=== PATIENT | female | born 1995 | race American Indian/Alaskan Native ===

== ENCOUNTER 2016-11-25 10:53 | Inpatient (IN) | payer MEDICAID ==
[2016-11-25] MEDS ORDERED: LACTATED RINGERS 1,000 ML ONE ×3 (11:47→14:10)
[2016-11-25] MEDS ORDERED: SUBLIMAZE ONE (11:48)
[2016-11-25] MEDS ORDERED: SUBLIMAZE IV ONE (11:50)
[2016-11-25] MEDS ORDERED: BRETHINE SUB-Q PRN (12:03)
[2016-11-25] MEDS ORDERED: BRETHINE IVP PRN (12:03)
[2016-11-25] MEDS ORDERED: ePHEDrine SULFATE IV PRN ×2 (12:03→13:22)
[2016-11-25] MEDS ORDERED: ZOFRAN IV PRN ×2 (12:03→17:00)
[2016-11-25] MEDS ORDERED: MINERAL OIL PO PRN (12:03)
[2016-11-25] MEDS ORDERED: SUBLIMAZE IV PRN (12:03)
[2016-11-25 12:21] LABS: Basophils % (Auto) 0.2 % (0.0-1.8); Eosinophils % (Auto) 0.4 % (0.0-4.3); Hematocrit 38.9 % (30.3-42.9); Hemoglobin 13.1 gm/dl (10.1-14.3); Mean Corpuscular HGB Conc 34 % (30-34); Mean Corpuscular Hemoglobin 29 pg (28-32); Mean Corpuscular Volume 87 fl (79-97); Platelet Count 186 K/mm3 (140-440); Red Blood Count 4.47 M/mm3 (3.65-5.03); Red Cell Distribution Width 14.7 % (13.2-15.2); White Blood Count 7.6 K/mm3 (4.5-11.0)
--- NOTE | 2016-11-25 12:29 | History and Physical Report ---
History of Present Illness Date of examination: 11/25/16 (Admission Exam) Date of admission: 11/25/16 11:17 Chief complaint: Contractions for 2 days now. Reports no LOF/ROM, VB and has normal FM> History of present illness: Pt evaluated in OBT for several hours 11/24/16 and was DC'd early this AM at 3 cm with no change in cx at that time. Past History Past Medical History: other (Note: per pt report, her record is not located at this time.) Past Surgical History: no surgical history Family/Genetic History: none Social history: single - Obstetrical History Expected Date of Delivery: 12/01/16 Actual Gestation: 39 Week(s) 1 Day(s) : 1 Para: 0 Number of Living Children: 0 Medications and Allergies Allergies Allergy/AdvReac Type Severity Reaction Status Date / Time ciprofloxacin [From Cipro] Allergy Intermediate Hives Unverified 11/24/16 22:16 ciprofloxacin HCl Allergy Intermediate Hives Unverified 11/24/16 22:16 [From Cipro] Home Medications Medication Instructions Recorded Confirmed Last Taken Type Pnv95/Ferrous Fumarate/FA 1 each PO DAILY 11/25/16 11/25/16 11/24/16 09:00 History [Prenavite Tablet] 1 Active Meds: Active Medications Ephedrine Sulfate (Ephedrine Sulfate) 10 mg IV Q2M PRN PRN Reason: Hypotension Stop: 11/25/16 12:08 Fentanyl (Sublimaze) 100 mcg IV Q2H PRN PRN Reason: Labor Pain Oxytocin/Sodium Chloride (Pitocin/Ns 20 Unit/1000ml Drip) 1,000 mls @ 125 mls/ hr IV DIRECT NED Oxytocin/Sodium Chloride (Pitocin/Ns 30 Unit/500ml) 500 mls @ 1 mls/hr IV TITR NED; 1 MILLIUNITS/MIN PRN Reason: Protocol Mineral Oil (Mineral Oil) 30 ml PO QHS PRN PRN Reason: Constipation Ondansetron HCl (Zofran) 4 mg IV Q8H PRN PRN Reason: Nausea And Vomiting Terbutaline Sulfate (Brethine) 0.25 mg SUB-Q ONCE PRN PRN Reason: Hyperstimulation/Hypertonicity Stop: 11/25/16 12:04 Terbutaline Sulfate (Brethine) 0.25 mg IVP ONCE PRN PRN Reason: Hyperstimulation/Hypertonicity Stop: 11/25/16 12:04 Review of Systems All systems: negative - Vital Signs Vital signs: Vital Signs Resp 18 11/25/16 12:05 Temp Pulse Resp BP Pulse Ox 18 11/25/16 12:05 - Physical Exam Breasts: Positive: normal Cardiovascular: Regular rate Lungs: Positive: Clear to auscultation Abdomen: Positive: normal appearance, soft Genitourinary (Female): Positive: other (VE deferred after exam only moments ago by RN and pt very uncomfortable. Will plan exam after pt is comfortable with epidural.) Extremities: Deep Tendon Reflex Grade: Normal +2 - Obstetrical FHR: category 1 Uterine Contraction Monitor Mode: External Cervical Dilatation: 7 Uterine Contraction Pattern: Regular Uterine Contraction Intensity: Strong/Firm Results All other labs normal. Assessment and Plan A. 21 y/o G1 term IUP in active labor GBS UNK - record not located P Routine admission, labs, VS Pain managment per pt request: IV and epidural Anticipate
[2016-11-25] MEDS ORDERED: PITOCin/NS 30 UNIT/500ML 500 ML IV SCH (13:00)
[2016-11-25] MEDS ORDERED: PITOCin/NS 20 UNIT/1000ML DRIP 1,000 ML IV SCH (13:00)
[2016-11-25] MEDS ORDERED: NARCAN 2 MG/2 ML IV PRN (13:22)
--- NOTE | 2016-11-25 13:23 | Anesthesia Consultation ---
Anesthesia Consult and Med Hx Date of service: 11/25/16 - Airway Anesthetic Teeth Evaluation: Good ROM Head & Neck: Adequate Mental/Hyoid Distance: Adequate Mallampati Class: Class II Intubation Access Assessment: Probably Good - Pulmonary Exam CTA: Yes - Cardiac Exam Cardiac Exam: RRR - Pre-Operative Health Status ASA Pre-Surgery Classification: ASA2 Proposed Anesthetic Plan: Epidural, Spinal - Pulmonary Hx Asthma: No COPD: No Hx Pneumonia: No - Cardiovascular System Hx Hypertension: No - Central Nervous System Hx Seizures: No Hx Psychiatric Problems: No - Endocrine Hx Renal Disease: No Hx End Stage Renal Disease: No Hx Hypothyroidism: No Hx Hyperthyroidism: No - Hematic Hx Anemia: No Hx Sickle Cell Disease: No - Other Systems Hx Alcohol Use: No Hx Obesity: Yes (bmi 31) - Additional Comments Anesthesia Medical History Comments: +
[2016-11-25] MEDS ORDERED: fentaNYL-BUPIV 2 MCG/ML-0.125% 100 ML EPIDURAL SCH (14:00)
--- NOTE | 2016-11-25 14:21 | Progress Note ---
Assessment and Plan A. Term IUP Good labor progress; clear fluid Cat II FHR s/p epidural P Close observation of labor progress and FHR status Will plan consult with Dr Odell if FHR becomes NR or worsens in level at Cat II At this time, continue to anticipate . Subjective - Subjective Date of service: 11/25/16 Interval history: Pt evaluated in OBT for several hours 11/24/16 and was DC'd early this AM at 3 cm with no change in cx at that time. Patient reports: other (Pt dozing and reports feeling comfortable now with epidural in place.) Objective - Vital Signs Vital Signs: Vital Signs - 12hr 11/25/16 11/25/16 11/25/16 12:05 13:28 13:30 Temperature 98.1 F Pulse Rate 97 H Pulse Rate [ 89 From Monitor] Respiratory 18 18 Rate Blood Pressure 137/75 Blood Pressure 137/75 [Right Arm] O2 Sat by Pulse 98 Oximetry 11/25/16 11/25/16 11/25/16 13:35 13:38 13:40 Temperature Pulse Rate 82 96 H 89 Pulse Rate [ From Monitor] Respiratory Rate Blood Pressure 129/72 Blood Pressure [Right Arm] O2 Sat by Pulse 99 100 Oximetry 11/25/16 11/25/16 11/25/16 13:41 13:42 13:44 Temperature Pulse Rate 96 H 93 H 94 H Pulse Rate [ From Monitor] Respiratory Rate Blood Pressure 130/68 121/61 117/63 Blood Pressure [Right Arm] O2 Sat by Pulse Oximetry - Exam Breasts: deferred Lungs: Normal air movement Abdomen: Present: normal appearance, soft Vulva: both: normal Uterus: Present: normal FHR: category 2 (Cat II post epidural with good recovery after FHR decels and normal variability) Uterine Contraction Monitor Mode: External Cervical Dilatation: 9 Cervical Effacement Percentage: 100 station: -1 Uterine Contraction Pattern: Regular - Labs Labs: Abnormal Labs 11/25/16 12:00 Seg Neutrophils % 77.7 H Laboratory Results - last 24 hr 11/25/16 11/25/16 12:00 12:00 WBC 7.6 RBC 4.47 Hgb 13.1 Hct 38.9 MCV 87 MCH 29 MCHC 34 RDW 14.7 Plt Count 186 Lymph % (Auto) 15.4 [place] % (Auto) 6.3 Eos % (Auto) 0.4 Baso % (Auto) 0.2 Lymph # 1.2 Jerauld # 0.5 Eos # 0.0 Baso # 0.0 Seg Neutrophils % 77.7 H Seg Neutrophils # 5.9 Blood Type O POSITIVE Antibody Screen Negative
[2016-11-25] MEDS ORDERED: LANSINOH TP PRN (17:00)
[2016-11-25] MEDS ORDERED: NORCO 5/325 PO PRN (17:00)
[2016-11-25] MEDS ORDERED: DULCOLAX PR PRN (17:00)
[2016-11-25] MEDS ORDERED: DERMOPLAST TP PRN (17:00)
[2016-11-25] MEDS ORDERED: MILK OF MAGNESIA PO PRN (17:00)
[2016-11-25] MEDS ORDERED: TYLENOL PO PRN (17:00)
[2016-11-25] MEDS ORDERED: BENADRYL PO PRN (17:00)
[2016-11-25] MEDS ORDERED: PHENERGAN PR PRN (17:00)
[2016-11-25] MEDS ORDERED: SODIUM CHLORIDE FLUSH SYRINGE 10 ML IV NR (17:00)
[2016-11-25] MEDS ORDERED: TUCKS PAD TP PRN (17:00)
[2016-11-25] MEDS ORDERED: ANUCORT-HC PR PRN (17:00)
[2016-11-25] MEDS ORDERED: PHENERGAN PO PRN (17:00)
--- NOTE | 2016-11-25 17:00 | Procedure Note ---
OB Delivery Note - Delivery Date of Delivery: 11/25/16 (@ 16:28) Surgeon: BEATRIZ HURST Estimated blood loss: 300cc - Vaginal Intrapartum events: none Delivery induction: none Delivery monitor: external FHT Route of delivery: Delivery placenta: spontaneous Episiotomy: none Delivery laceration: 1st degree (L Hymenal ring lac with extension to L labia) Delivery repair: chromic (3.[address] 1) Anesthesia: epidural - Infant A at 1 minute: 8 at 5 minutes: 9 Gender: Male (Vogorous boy with spontaneous resp effort and cry immediately after del of shoulders, so bulb sx and then cord C&C for to warmer for pedi assessment. brought back for skin/skin after assessment Wt [id number] gm and 20.5 in long)
[2016-11-26 05:38] LABS: Hematocrit 36.1 % (30.3-42.9)
[2016-11-26] MEDS: PRENATAL VITAMIN PO SCH (10:30)
--- NOTE | 2016-11-26 12:53 | Progress Note ---
Assessment and Plan A. PP day # 1: normal course Desires DC in AM Undecided about contraception P. Continue pp care and support DC in AM F/U at office in 6 wk Subjective - Subjective Date of service: 11/26/16 (PP Day # 1) Interval history: Pt evaluated in OBT for several hours 11/24/16 and was DC'd early this AM at 3 cm with no change in cx at that time. Patient reports: appetite normal, voiding normally, pain well controlled, ambulating normally : doing well, nursing well Objective - Vital Signs Latest vital signs: Vital Signs Temp Pulse Pulse Resp BP BP Pulse Ox 11/26/16 07:43 98.4 F 71 18 116/61 11/26/16 04:00 98.4 F 84 18 123/68 11/26/16 00:20 98.8 F 86 18 114/72 11/25/16 18:22 71 99 11/25/16 18:17 76 99 11/25/16 18:16 93 H 130/74 11/25/16 18:12 75 99 11/25/16 18:07 76 99 11/25/16 18:01 96 H 123/66 11/25/16 17:46 93 H 127/68 11/25/16 17:45 93 H 18 127/68 11/25/16 17:31 89 125/69 11/25/16 17:30 89 18 125/69 11/25/16 17:16 123 H 142/69 11/25/16 17:15 98 H 123 H 18 132/63 142/69 100 11/25/16 17:10 85 100 11/25/16 17:05 93 H 100 11/25/16 17:00 88 100 11/25/16 16:45 99.1 F 108 H 18 153/60 99 11/25/16 14:39 18 119/64 11/25/16 13:44 94 H 117/63 11/25/16 13:42 93 H 121/61 11/25/16 13:41 96 H 130/68 11/25/16 13:40 89 100 11/25/16 13:38 96 H 129/72 11/25/16 13:35 82 99 11/25/16 13:30 98.1 F 89 18 137/75 98 11/25/16 13:28 97 H 137/75 Intake and Output 11/25/16 11/26/16 11/26/16 22:59 06:59 14:59 Intake Total 500 600 Output Total 850 800 Balance -350 -200 Intake: IV 500 Lactated Ringers 1,000 ml 500 As .[email or web address]#:[id number] Oral 600 Output: Urine 850 800 Indwelling Catheter 850 800 Other: Total, Intake Amount 240 Total, Output Amount 250 400 Estimated Blood Loss 300 - Exam Breasts: Present: normal Cardiovascular: Present: Regular rate Lungs: Present: Normal air movement Abdomen: Present: normal appearance, soft, normal bowel sounds Vulva: both: normal Uterus: Present: fundal height below umbilicus Extremities: Present: normal Incision: Present: normal, dry, intact
--- NOTE | 2016-11-26 13:08 | Discharge Summary ---
Providers - Providers Date of Admission: 11/25/16 11:17 Date of discharge: 11/27/16 Attending physician: ADRIANE SANCHEZ MD Primary care physician: ADRIANE SANCHEZ MD Hospitalization Reason for admission: active labor, rupture of membranes Delivery: Episiotomy: none Laceration: 1st degree (L hymenal ring lac with extension to L labia) Other procedures: none complications: none [place] baby: male ([id number]; vigorous with spontaneous cry and no complications from mec at [facility]) Condition at discharge: Good Disposition: DISCHARGED TO HOME OR SELFCARE Plan - Provider Discharge Summary Activity: no sex for 6 weeks, no heavy lifting 4 weeks, no strenuous exercise Diet: routine Instructions: routine Additional instructions: [] Smoking cessation referral if applicable(refer to patient education folder for contact #) [] Refer to [facility] Booklet Call your doctor immediately for: * Fever > 100.5 * Heavy vaginal bleeding ( >1 pad per hour) * Severe persistent headache * Shortness of breath * Reddened, hot, painful area to leg or breast * Drainage or odor from incision. * Keep incision clean and dry at all times and follow doctor's instructions regarding bathing/showering - Follow up plan Follow up: JAI DUNLAP, CLARISA [Advanced Practice Nurse] - 7 Days
[2016-11-26] MEDS: MOTRIN PO SCH (18:34)
[2016-11-27 12:18] VITALS: BP 122/75
[2016-11-27] MEDS: PRENATAL VITAMIN PO SCH (12:43)
[2016-11-27] MEDS: MOTRIN PO SCH (12:44)
== END 2016-11-27 15:17 | disposition home or self-care (01) | DRG 775 ==
LOC: TRG 10:53 → LD 11:17 → OB 22:19
PROVIDERS: ADMIT Obstetrics & Gynecology; ATTEND Obstetrics & Gynecology
PROC: 10E0XZZ Delivery of Products of Conception, External Approach (ICD-10-PCS; principal; 2016-11-25)
PROC: 0HQ9XZZ Repair Perineum Skin, External Approach (ICD-10-PCS; 2016-11-25)
PROC: 00HU33Z Insertion of Infusion Device into Spinal Canal, Percutaneous Approach (ICD-10-PCS; 2016-11-25)
PROC: 3E0R3CZ (ICD-10-PCS; 2016-11-25)
DX: O77.0 Labor and delivery complicated by meconium in amniotic fluid (principal); O70.0 First degree perineal laceration during delivery; Z37.0 Single live birth; Z3A.39 39 weeks gestation of pregnancy; Z88.1 Allergy status to other antibiotic agents; O99.214 Obesity complicating childbirth; Z68.31 Body mass index [BMI] 31.0-31.9, adult
CPT/HCPCS: 36415; 85014; 85018; 85025; 86850; 86900; 86901; 99211; G0463; J2590; J3010; J7120

== ENCOUNTER 2021-07-19 12:20 | Outpatient (CLI) | payer MEDICAID ==
[2021-07-19 12:45] VITALS: BP 125/81
[2021-07-19] MEDS ORDERED: LACTATED RINGERS 1,000 ML IV ONE (13:10)
[2021-07-19 14:04] LABS: Bacteria,Urine 3+ /HPF (Negative); Bilirubin,Urine NEG (Negative); Blood,Urine NEG (Negative); Color,Urine Yellow (Yellow); Protein,Urine <15 mg/dL mg/dL (Negative); Urobilinogen,Urine < 2.0 mg/dL (<2.0)
== END 2021-07-19 15:01 | disposition home or self-care (01) ==
LOC: TRG 12:20 → APU 12:22 → TRG 15:01
PROVIDERS: ATTEND Obstetrics & Gynecology
DX: O26.893 Other specified pregnancy related conditions, third trimester (principal); R10.9 Unspecified abdominal pain; O21.2 Late vomiting of pregnancy; Z3A.36 36 weeks gestation of pregnancy
CPT/HCPCS: 59025; 81001; 96360; J7120

== ENCOUNTER 2021-08-07 03:25 | Outpatient (CLI) | payer MEDICAID ==
[2021-08-07 03:53] VITALS: BP 119/75
== END 2021-08-07 04:45 | disposition home or self-care (01) ==
LOC: TRG 03:25 → APU 03:27 → TRG 04:45
DX: O26.893 Other specified pregnancy related conditions, third trimester (principal); R10.2 Pelvic and perineal pain; Z3A.38 38 weeks gestation of pregnancy
CPT/HCPCS: 59025